=== PATIENT | female | born 1940 | race Asian ===

== ENCOUNTER 2023-11-18 06:03 | Day surgery (SDC) | payer OTHER ==
[~2023-11-18] VITALS: Ht 152.4 cm; Wt 51.8 kg
[2023-11-18] MEDS ORDERED: LIDOCAINE 4% 50 ML SOLUTION TP ONE (06:04)
[2023-11-18] MEDS ORDERED: LIDOCAINE 2% 11 ML JELLY TP ONE (06:04)
[2023-11-18] MEDS ORDERED: BENZOCAINE 20% 50 MCG/SPRAY 57 GM TP ONE (06:04)
[2023-11-18] MEDS ORDERED: SODIUM CHLORIDE 0.9% 1,000 ML ONE (07:03)
[2023-11-18] MEDS: SODIUM CHLORIDE 0.9% 1,000 ML IV ONE (08:18)
[2023-11-18] MEDS ORDERED: MIDAZOLAM HCL 2 MG/2 ML VIAL ONE (08:23)
[2023-11-18] MEDS ORDERED: FentaNYL CITRATE PF 100 MCG/2 ML VIAL ONE (08:23)
[2023-11-18] MEDS ORDERED: MethylPREDNISolone SOD SUCC 125 MG/2 ML VIAL ONE (09:13)
[2023-11-18 09:28] VITALS: PULSE 71; RESP 21; O2SAT 100
[2023-11-18] MEDS: MethylPREDNISolone SOD SUCC 125 MG/2 ML VIAL IVP ONE (09:49)
[2023-11-18] MEDS: PROMETHAZINE HCL/PHENYLEPHRINE/CODEINE 5 ML ORAL.SYG PO ONE (10:33)
[2023-11-18] MEDS ORDERED: DEXL60CA3 PO (11:37)
[2023-11-18] MEDS ORDERED: MONT-35 PO (11:37)
[2023-11-18] MEDS ORDERED: OLME20TA73 PO (11:37)
[2023-11-18] MEDS ORDERED: CETI-450 PO (11:37)
[2023-11-18] MEDS ORDERED: TRIP1TAB14 PO (11:37)
[2023-11-18] MEDS ORDERED: ATOR40TA28 PO (11:37)
[2023-11-18] MEDS ORDERED: LEVO88TA4 PO (11:37)
[2023-11-18] MEDS ORDERED: FLUT16SP NASAL (11:37)
[2023-11-18] MEDS ORDERED: NEBI5TAB11 PO (11:37)
[2023-11-18] MEDS ORDERED: BUDE10.7 IH (11:37)
[2023-11-18] MEDS ORDERED: CLOP75TA60 PO (11:37)
[2023-11-18] MEDS ORDERED: ALBU18HF12 IH (11:37)
[2023-11-18] MEDS ORDERED: TRAM-559 PO (11:37)
[2023-11-18] MEDS ORDERED: CHOL200059 PO (12:55)
[2023-11-18] MEDS ORDERED: DENO60DI SQ (12:55)
== END 2023-11-18 12:10 | disposition home or self-care (01) ==
LOC: SURGERY 06:03
PROVIDERS: ATTEND Internal Medicine Critical Care Medicine
DX: J38.4 Edema of larynx (principal); B37.0 Candidal stomatitis; Z79.899 Other long term (current) drug therapy
CPT/HCPCS: 31623; 88112; 87206; 87101; 87220; 87070; 88305; 87186; 31624; 71045; 87015; J3010; J2250; J2930; Q9967; J7030; Z7610

== ENCOUNTER 2024-11-13 07:16 | Day surgery (SDC) | payer OTHER ==
[~2024-11-13] VITALS: Ht 152.4 cm; Wt 51.7 kg
[~2024-11-13 07:16] MED LIST: ALBU18HF12 IH; ATOR40TA28 PO; BUDE10.7 IH; CETI-450 PO; CHOL200059 PO; CLOP75TA60 PO; DENO60DI SQ; DEXL60CA3 PO; FLUT16SP NASAL; LEVO88TA4 PO; MONT-35 PO; NEBI5TAB12 PO; OLME20TA73 PO; TRAM50TA5 PO; TRIP1TAB14 PO
[2024-11-13] MEDS ORDERED: BENZOCAINE 20% 50 MCG/SPRAY 57 GM TP ONE (07:17)
[2024-11-13] MEDS ORDERED: LIDOCAINE 4% 50 ML SOLUTION TP ONE (07:17)
[2024-11-13] MEDS ORDERED: LIDOCAINE 2% 11 ML JELLY TP ONE (07:17)
[2024-11-13] MEDS ORDERED: MIDAZOLAM HCL 2 MG/2 ML VIAL ONE (08:13)
[2024-11-13] MEDS ORDERED: FentaNYL CITRATE PF 100 MCG/2 ML VIAL ONE (08:13)
[2024-11-13] MEDS: SODIUM CHLORIDE 0.9% 1,000 ML IV ONE (08:39)
[2024-11-13 09:40] VITALS: PULSE 65; RESP 12; O2SAT 97
[2024-11-13] MEDS ORDERED: MethylPREDNISolone SOD SUCC 125 MG/2 ML VIAL ONE (09:50)
[2024-11-13] MEDS: MethylPREDNISolone SOD SUCC 125 MG/2 ML VIAL IVP ONE (10:05)
== END 2024-11-13 14:15 | disposition home or self-care (01) ==
LOC: SURGERY 07:16
PROVIDERS: ATTEND Internal Medicine Critical Care Medicine
DX: J38.4 Edema of larynx (principal); B37.0 Candidal stomatitis; Z98.890 Other specified postprocedural states; M19.90 Unspecified osteoarthritis, unspecified site; Z79.899 Other long term (current) drug therapy
CPT/HCPCS: 31623; 87206; 87101; 87220; 87070; 88108; 87186; 31624; 71045; 87015; J3010; J2250; J2919; Z7610